=== PATIENT | female | born 1930 | race Caucasian/White ===

== ENCOUNTER 2017-12-30 04:43 | Emergency (ER) | payer MEDICARE, OTHER ==
[~2017-12-30] VITALS: Ht 170.2 cm; Wt 65.0 kg
[~2017-12-30 04:43] MED LIST: CHOL10002 PO; DONE10TA44 PO; PER5325T PO
[2017-12-30] MEDS ORDERED: TETanus/Pertussis (Acell)/Diphther VAC/PF (Tdap-Adult) 0.5ml syringe IM ONE (07:45)
[2017-12-30] MEDS ORDERED: LIDOcaine 1.5% w/epinephrine 1:200,000 5ml ampul IJ ONE (07:45)
[2017-12-30 07:56] LABS: BASOPHILS % (AUTO) 0.4 % (0-1); EOSINOPHILS # (AUTO) 0.1 X10'3 (0-0.9); EOSINOPHILS % (AUTO) 2.5 % (0-6); HEMATOCRIT 33.9 % (35.0-45.0); HEMOGLOBIN 11.2 g/dl (12.0-16.0); LYMPHOCYTES # (AUTO) 1.3 X10'3 (1.1-4.8); LYMPHOCYTES % (AUTO) 33.8 % (21-51); MEAN CORPUSCULAR HEMOGLOBIN 28.3 PG (27.0-31.0); MEAN CORPUSCULAR VOLUME 85.8 FL (78-98); MEAN PLATELET VOLUME 10.9 FL (7.4-10.4); MONOCYTES # (AUTO) 0.5 X10'3 (0-0.9); MONOCYTES % (AUTO) 13.6 % (2-12); NEUTROPHILS # (AUTO) 1.9 X10'3 (1.8-7.7); NEUTROPHILS % (AUTO) 49.7 % (42-75); PLATELET COUNT 93 X10'3 (140-440); RED BLOOD COUNT 3.95 X10'6 (4.20-5.60); RED CELL DISTRIBUTION WIDTH 14.9 % (11.5-14.5); WHITE BLOOD COUNT 3.8 X10'3 (4.5-11.0)
[2017-12-30 08:07] LABS: ALANINE AMINOTRANSFERASE 13 U/L (12-78); ALBUMIN 3.7 G/DL (3.4-5.0); ALKALINE PHOSPHATASE 66 IU/L (46-116); ANION GAP 8 (8-16); ASPARTATE AMINO TRANSFERASE 19 U/L (10-37); BILIRUBIN,TOTAL 0.3 MG/DL (0.1-1.0); BLOOD UREA NITROGEN 15 MG/DL (7-18); BUN/CREATININE RATIO 18.5 (6.6-38.0); CALCIUM 9.3 MG/DL (8.5-10.1); CHLORIDE 105 MMOL/L (99-107); CREATININE 0.81 MG/DL (0.40-0.90); GLUCOSE 88 MG/DL (70-104); POTASSIUM 3.6 MMOL/L (3.5-5.1); SODIUM 144 MMOL/L (135-145); TOTAL PROTEIN 7.5 G/DL (6.4-8.2); eGFR 67 ML/MIN
[2017-12-30 08:21] LABS: LARGE PLATELETS FEW; PLATELET ESTIMATE DECREASED
[2017-12-30 08:34] LABS: CLARITY,URINE CLEAR (Clear); COLOR,URINE YELLOW (Yellow); GLUCOSE, URINE NEGATIVE (Neg); KETONES,URINE NEGATIVE (Neg); LEUKOCYTE ESTERASE ,URINE NEGATIVE (Neg); NITRITES, URINE NEGATIVE (Neg); OCCULT BLOOD,URINE TRACE-INTACT (Neg); PROTEIN,URINE NEGATIVE (Neg); UROBILINOGEN,URINE 0.2 E.U/dL (0.2-1.0)
[2017-12-30 08:40] LABS: UA COLLECTION TYPE CLN CATCH MIDSTREAM
[2017-12-30 08:42] LABS: BACTERIA,URINE NONE SEEN /HPF (Neg); RBC,URINE 0-2 /HPF (0-2); SQUAMOUS EPITHELIAL CELL,UR FEW /LPF (FEW); WBC,URINE 0-4 /HPF (0-4)
[2017-12-30 10:25] VITALS: BP 148/81
== END 2017-12-30 10:29 | disposition home or self-care (01) ==
LOC: ER 04:44
DX: S01.81XA Laceration without foreign body of other part of head, initial encounter (principal); M25.512 Pain in left shoulder; F03.90 Unspecified dementia, unspecified severity, without behavioral disturbance, psychotic disturbance, mood disturbance, and anxiety; I10 Essential (primary) hypertension; Z90.710 Acquired absence of both cervix and uterus; Z88.0 Allergy status to penicillin; Z88.2 Allergy status to sulfonamides; W19.XXXA Unspecified fall, initial encounter; Y93.89 Activity, other specified; Y92.89 Other specified places as the place of occurrence of the external cause; Y99.8 Other external cause status
CPT/HCPCS: 12013; 36415; 70450; 71045; 72125; 73030; 80053; 81001; 84484; 85025; 90471; 90715; 93005; 99285; A6449; J3490

== ENCOUNTER 2018-02-14 14:40 | Inpatient (IN) | payer MEDICARE, OTHER ==
[~2018-02-14] VITALS: Ht 167.6 cm; Wt 54.5 kg
[2018-02-14] MEDS ORDERED: normal saline 1000ML IV soln IVB ONE (15:15)
[2018-02-14 15:35] LABS: BASOPHILS % (AUTO) 0.1 % (0-1); EOSINOPHILS # (AUTO) 0.1 X10'3 (0-0.9); EOSINOPHILS % (AUTO) 1.2 % (0-6); HEMATOCRIT 32.6 % (35.0-45.0); HEMOGLOBIN 10.9 g/dl (12.0-16.0); LYMPHOCYTES # (AUTO) 1.3 X10'3 (1.1-4.8); LYMPHOCYTES % (AUTO) 30.2 % (21-51); MEAN CORPUSCULAR HEMOGLOBIN 28.4 PG (27.0-31.0); MEAN CORPUSCULAR HGB CONC 33.6 % (33.0-36.5); MEAN CORPUSCULAR VOLUME 84.6 FL (78-98); MEAN PLATELET VOLUME 9.7 FL (7.4-10.4); MONOCYTES # (AUTO) 0.6 X10'3 (0-0.9); MONOCYTES % (AUTO) 14.1 % (2-12); NEUTROPHILS # (AUTO) 2.3 X10'3 (1.8-7.7); NEUTROPHILS % (AUTO) 54.4 % (42-75); PLATELET COUNT 216 X10'3 (140-440); RED BLOOD COUNT 3.85 X10'6 (4.20-5.60); RED CELL DISTRIBUTION WIDTH 15.4 % (11.5-14.5); WHITE BLOOD COUNT 4.2 X10'3 (4.5-11.0)
[2018-02-14 15:47] LABS: ANISOCYTOSIS 1+; LARGE PLATELETS FEW; PLATELET ESTIMATE NORMAL; SCHISTOCYTES FEW
[2018-02-14 15:49] LABS: ACANTHOCYTES 1+; HYPOCHROMASIA 1+
[2018-02-14 15:51] LABS: ALANINE AMINOTRANSFERASE 19 U/L (12-78); ALBUMIN 3.2 G/DL (3.4-5.0); ALBUMIN/GLOBULIN RATIO 0.7 (1.1-1.5); ALKALINE PHOSPHATASE 60 IU/L (46-116); ANION GAP 11 (8-16); ASPARTATE AMINO TRANSFERASE 21 U/L (10-37); BILIRUBIN,TOTAL 0.2 MG/DL (0.1-1.0); BLOOD UREA NITROGEN 44 MG/DL (7-18); BUN/CREATININE RATIO 29.7 (6.6-38.0); CALCIUM 9.2 MG/DL (8.5-10.1); CHLORIDE 105 MMOL/L (99-107); CREATININE 1.48 MG/DL (0.40-0.90); GLUCOSE 179 MG/DL (70-104); MAGNESIUM 2.4 MG/DL (1.5-2.4); SODIUM 146 MMOL/L (135-145); TOTAL CARBON DIOXIDE 29.8 MMOL/L (24-32); TOTAL PROTEIN 7.6 G/DL (6.4-8.2); eGFR 33 ML/MIN
[2018-02-14 15:53] LABS: POTASSIUM 2.8 MMOL/L (3.5-5.1)
[2018-02-14 16:09] LABS: CLARITY,URINE CLEAR (Clear); GLUCOSE, URINE NEGATIVE (Neg); KETONES,URINE TRACE mg/dl (Neg); LEUKOCYTE ESTERASE ,URINE NEGATIVE (Neg); NITRITES, URINE NEGATIVE (Neg); OCCULT BLOOD,URINE NEGATIVE (Neg); PROTEIN,URINE TRACE mg/dl (Neg); UROBILINOGEN,URINE 0.2 E.U/dL (0.2-1.0)
[2018-02-14 16:11] LABS: COLOR,URINE DARK YELLOW (Yellow); UA COLLECTION TYPE STRAIGHT CATH
[2018-02-14 16:15] LABS: BACTERIA,URINE NONE SEEN /HPF (Neg); MUCUS STRANDS NONE SEEN /LPF (Neg); RBC,URINE 0-2 /HPF (0-2); SQUAMOUS EPITHELIAL CELL,UR NONE SEEN /LPF (FEW); WBC,URINE 0-4 /HPF (0-4)
[2018-02-14 16:16] LABS: URINE AMPHETAMINE SCREEN NEGATIVE (Neg); URINE BARBITUATE SCREEN NEGATIVE (Neg); URINE BENZODIAZEPINES SCREEN NEGATIVE (Neg); URINE CANNABINOID SCREEN NEGATIVE (Neg); URINE COCAINE SCREEN NEGATIVE (Neg); URINE METHADONE SCREEN NEGATIVE (Neg); URINE OPIATE SCREEN NEGATIVE (Neg); URINE PHENCYCLIDINE SCREEN NEGATIVE (Neg)
[2018-02-14] MEDS ORDERED: potassium 10mEq/100ml NS w/LIDOcaine (10mg/bag) IV ONE (16:20)
[2018-02-14] MEDS: normal saline 1000ml 1,000 ML IV SCH (16:42)
[2018-02-14] MEDS ORDERED: mag hydrox/Alum hydrox/simeth 30ml oral suspension PO PRN (16:45)
[2018-02-14] MEDS ORDERED: acetaminophen 325mg tablet PO PRN (16:45)
[2018-02-14] MEDS ORDERED: ondansetron/PF 4mg/2ml inj IV PRN (16:45)
[2018-02-14] MEDS ORDERED: magnesium hydroxide 30ml (MOM) UD suspension PO PRN (16:45)
[2018-02-14] MEDS ORDERED: DIVA-81 PO (16:55)
[2018-02-14] MEDS ORDERED: PANT40TA4 PO (16:55)
[2018-02-14] MEDS ORDERED: AMLO2.5T2 PO (16:55)
[2018-02-14] MEDS ORDERED: GABA-532 PO (16:55)
[2018-02-14] MEDS ORDERED: MEMA10TA21 PO (16:55)
[2018-02-14] MEDS ORDERED: LACT1CAP65 PO (16:55)
[2018-02-14] MEDS ORDERED: ASPI-1264 PO (16:55)
[2018-02-14] MEDS ORDERED: OLAN5TAB5 PO (16:55)
[2018-02-14] MEDS ORDERED: MV-M1TAB19 PO (16:55)
[2018-02-14] MEDS ORDERED: MIRT30TA8 PO (16:55)
[2018-02-14] MEDS ORDERED: IBUP-1984 PO (16:55)
[2018-02-14 19:30] VITALS: BP 138/77
[2018-02-14] MEDS ORDERED: magnesium Cl slow-release 64mg tablet PO PRN (20:20)
[2018-02-14] MEDS ORDERED: magnesium/D5W IVPB 100 ML IV PRN (20:20)
[2018-02-14] MEDS ORDERED: magnesium 4gm in 100ml NS 100 ML IV PRN (20:20)
[2018-02-14] MEDS ORDERED: potassium Cl 20 mEq SR tablet PO PRN ×2 (20:20)
[2018-02-14] MEDS ORDERED: potassium Cl 40MEQ/NS 500ml 500 ML IV PRN ×2 (20:20)
[2018-02-14] MEDS ORDERED: potassium Cl oral solution 20 MEQ/15 ML PO PRN (20:26)
[2018-02-14] MEDS: memantine 5mg tablet PO SCH (20:41)
[2018-02-14] MEDS: gabapentin 300mg capsule PO SCH (20:41)
[2018-02-14] MEDS: donepezil 5mg tablet PO SCH (20:41)
[2018-02-14] MEDS: potassium Cl oral solution 20 MEQ/15 ML PO PRN (20:42)
[2018-02-14] MEDS: lactobacillus rhamnosus 10,000 MMU CELLS/CAPSULE PO SCH (20:42)
[2018-02-14] MEDS: mirtazapine 15mg tablet PO SCH (20:43)
[2018-02-14] MEDS: heparin, porcine 5000 units/ml vial SQ SCH (20:44)
[2018-02-15] VITALS: BP 112/62
[2018-02-15] MEDS: potassium Cl oral solution 20 MEQ/15 ML PO PRN (00:53)
[2018-02-15] MEDS: normal saline 1000ml 1,000 ML IV SCH (02:29)
[2018-02-15 05:13] LABS: BASOPHILS % (AUTO) 0.5 % (0-1); EOSINOPHILS # (AUTO) 0.1 X10'3 (0-0.9); EOSINOPHILS % (AUTO) 1.5 % (0-6); HEMOGLOBIN 10.2 g/dl (12.0-16.0); LYMPHOCYTES # (AUTO) 1.3 X10'3 (1.1-4.8); MEAN CORPUSCULAR HEMOGLOBIN 28.1 PG (27.0-31.0); MEAN CORPUSCULAR HGB CONC 32.9 % (33.0-36.5); MEAN CORPUSCULAR VOLUME 85.3 FL (78-98); MEAN PLATELET VOLUME 9.9 FL (7.4-10.4); MONOCYTES # (AUTO) 0.6 X10'3 (0-0.9); MONOCYTES % (AUTO) 16.5 % (2-12); NEUTROPHILS # (AUTO) 1.7 X10'3 (1.8-7.7); NEUTROPHILS % (AUTO) 46.5 % (42-75); PLATELET COUNT 189 X10'3 (140-440); RED BLOOD COUNT 3.63 X10'6 (4.20-5.60); RED CELL DISTRIBUTION WIDTH 15.3 % (11.5-14.5); WHITE BLOOD COUNT 3.7 X10'3 (4.5-11.0)
[2018-02-15 05:25] LABS: ALBUMIN 2.8 G/DL (3.4-5.0); ANION GAP 8 (8-16); BLOOD UREA NITROGEN 34 MG/DL (7-18); BUN/CREATININE RATIO 40.5 (6.6-38.0); CALCIUM 8.9 MG/DL (8.5-10.1); CHLORIDE 113 MMOL/L (99-107); CREATININE 0.84 MG/DL (0.40-0.90); GLUCOSE 87 MG/DL (70-104); POTASSIUM 4.1 MMOL/L (3.5-5.1); SODIUM 149 MMOL/L (135-145); TOTAL CARBON DIOXIDE 28.1 MMOL/L (24-32); eGFR 64 ML/MIN
[2018-02-15 07:11] LABS: LARGE PLATELETS FEW; PLATELET ESTIMATE NORMAL
[2018-02-15 07:13] LABS: ANISOCYTOSIS 1+; HYPOCHROMASIA 1+; POLYCHROMASIA FEW; SCHISTOCYTES 1+
[2018-02-15 07:36] VITALS: BP_SYST 101; BP_SYST 137; BP_SYST 148; BP_DIAS 71; BP_DIAS 72; BP_DIAS 80
[2018-02-15] MEDS ORDERED: non-formulary drug (Mv-Mn/Iron/Fa/Herbal Cmplx#190 (Vitamin D3 Complete Caplet) 1 EACH) PO SCH (08:00)
[2018-02-15] MEDS: lactobacillus rhamnosus 10,000 MMU CELLS/CAPSULE PO SCH (08:44)
[2018-02-15] MEDS: memantine 5mg tablet PO SCH ×2 (08:44→19:30)
[2018-02-15] MEDS: aspirin 325mg tablet PO SCH (08:44)
[2018-02-15] MEDS: pantoprazole 40mg Tablet.DR PO SCH (08:44)
[2018-02-15] MEDS: amLODIPine 2.5mg tablet PO SCH (08:44)
[2018-02-15] MEDS: divalproex sod 250mg ER (24-hour) tablet PO SCH (08:44)
[2018-02-15] MEDS: heparin, porcine 5000 units/ml vial SQ SCH ×2 (08:45→19:31)
[2018-02-15] MEDS: sodium chloride 0.45% 1,000 ML IV SCH ×2 (08:47→20:36)
[2018-02-15 19:00] VITALS: BP 155/83
[2018-02-15] MEDS: mirtazapine 15mg tablet PO SCH (20:35)
[2018-02-15] MEDS: donepezil 5mg tablet PO SCH (20:36)
[2018-02-15] MEDS: gabapentin 300mg capsule PO SCH (20:36)
[2018-02-16] VITALS: BP_SYST 140; BP_SYST 142; BP_SYST 162; BP_DIAS 52; BP_DIAS 74; BP_DIAS 92
[2018-02-16 06:07] LABS: BASOPHILS % (AUTO) 0.2 % (0-1); EOSINOPHILS % (AUTO) 1.1 % (0-6); HEMATOCRIT 29.2 % (35.0-45.0); HEMOGLOBIN 9.8 g/dl (12.0-16.0); LYMPHOCYTES # (AUTO) 1.3 X10'3 (1.1-4.8); LYMPHOCYTES % (AUTO) 28.7 % (21-51); MEAN CORPUSCULAR HEMOGLOBIN 28.3 PG (27.0-31.0); MEAN CORPUSCULAR HGB CONC 33.5 % (33.0-36.5); MEAN CORPUSCULAR VOLUME 84.6 FL (78-98); MONOCYTES # (AUTO) 0.7 X10'3 (0-0.9); MONOCYTES % (AUTO) 17.2 % (2-12); NEUTROPHILS # (AUTO) 2.3 X10'3 (1.8-7.7); NEUTROPHILS % (AUTO) 52.8 % (42-75); PLATELET COUNT 176 X10'3 (140-440); RED BLOOD COUNT 3.45 X10'6 (4.20-5.60); RED CELL DISTRIBUTION WIDTH 14.6 % (11.5-14.5); WHITE BLOOD COUNT 4.4 X10'3 (4.5-11.0)
[2018-02-16 06:14] LABS: ALBUMIN 2.8 G/DL (3.4-5.0); ANION GAP 6 (8-16); BLOOD UREA NITROGEN 16 MG/DL (7-18); BUN/CREATININE RATIO 25.8 (6.6-38.0); CALCIUM 8.5 MG/DL (8.5-10.1); CHLORIDE 106 MMOL/L (99-107); CREATININE 0.62 MG/DL (0.40-0.90); GLUCOSE 89 MG/DL (70-104); MAGNESIUM 1.6 MG/DL (1.5-2.4); POTASSIUM 3.2 MMOL/L (3.5-5.1); SODIUM 141 MMOL/L (135-145); TOTAL CARBON DIOXIDE 29.2 MMOL/L (24-32); eGFR > 90 ML/MIN
[2018-02-16] MEDS: sodium chloride 0.45% 1,000 ML IV SCH (06:40)
[2018-02-16 07:06] VITALS: BP 124/67
[2018-02-16 07:09] LABS: LARGE PLATELETS FEW; PLATELET ESTIMATE NORMAL
[2018-02-16 08:00] VITALS: BP_SYST 130; BP_SYST 135; BP_SYST 150; BP_DIAS 68; BP_DIAS 72; BP_DIAS 74
[2018-02-16] MEDS: aspirin 325mg tablet PO SCH (08:27)
[2018-02-16] MEDS: amLODIPine 2.5mg tablet PO SCH (08:27)
[2018-02-16] MEDS: pantoprazole 40mg Tablet.DR PO SCH (08:27)
[2018-02-16] MEDS: memantine 5mg tablet PO SCH (08:27)
[2018-02-16] MEDS: divalproex sod 250mg ER (24-hour) tablet PO SCH (08:27)
[2018-02-16] MEDS: heparin, porcine 5000 units/ml vial SQ SCH (08:28)
[2018-02-16 11:00] VITALS: BP 133/69
== END 2018-02-16 16:25 | disposition home health service (06) | DRG 682 ==
LOC: ER 14:40 → ED HOLD 16:42 → EDBEDREQ 18:25 → SUR 3N 19:36
PROVIDERS: ADMIT Internal Medicine; ATTEND Internal Medicine
DX: N17.9 Acute kidney failure, unspecified (principal); G93.40 Encephalopathy, unspecified; D64.9 Anemia, unspecified; E86.0 Dehydration; E87.6 Hypokalemia; F03.90 Unspecified dementia, unspecified severity, without behavioral disturbance, psychotic disturbance, mood disturbance, and anxiety; G47.00 Insomnia, unspecified; M19.90 Unspecified osteoarthritis, unspecified site; G62.9 Polyneuropathy, unspecified; I10 Essential (primary) hypertension; I95.1 Orthostatic hypotension; R62.7 Adult failure to thrive; Z90.13 Acquired absence of bilateral breasts and nipples; Z90.49 Acquired absence of other specified parts of digestive tract; Z90.710 Acquired absence of both cervix and uterus; Z88.0 Allergy status to penicillin; Z88.2 Allergy status to sulfonamides; Z88.8 Allergy status to other drugs, medicaments and biological substances; Z91.041 Radiographic dye allergy status; Z79.82 Long term (current) use of aspirin; Z79.899 Other long term (current) drug therapy; Z85.038 Personal history of other malignant neoplasm of large intestine; Z85.3 Personal history of malignant neoplasm of breast; Z80.9 Family history of malignant neoplasm, unspecified
CPT/HCPCS: 36415; 71045; 73070; 80048; 80053; 80305; 81001; 83735; 84484; 85025; 87070; 92616; 93005; 96361; 96365; 97116; 97162; 97530; 99285; A6213; J1644; J3480; J7030